=== PATIENT | male | born 1955 | race Caucasian/White ===

== ENCOUNTER 2018-01-05 03:31 | Inpatient (IN) | payer OTHER ==
[~2018-01-05] VITALS: Ht 175.3 cm; Wt 90.7 kg
[~2018-01-05 03:31] MED LIST: ASPIRIN EC81 M1 PO; MULTIVITAMINS1 EAC9 PO; VITAMIN B122500 MC1
--- NOTE | 2018-01-05 09:37 | Admission Core Measures ---
Acute Coronary Syndrome (CM) ACS Core Measures Acute Coronary Syndrome Diagnosis No Congestive Heart Failure (NEW) CHF Core Measures Congestive Heart Failure Diagnosis No Cerebrovascular Accident CVA Core Measures CVA/TIA Diagnosis No Venous Thromboembolism VTE Core Meme (View Protocol) VTE Risk Factors Surgery No Mechanical VTE Prophylaxis d/t N/A MechProphylax Ordered No VTE Pharm Prophylaxis d/t NA PharmProphylax ordered Problem List As ranked by this Provider includes Assessment & Plan 1. Unilateral primary osteoarthritis, left hip HOME MEDS Home Med List Aspirin (Ecotrin*) 81 MG TABLET.DR 1 TAB PO DAILY HEART HEALTH (Reported) Multiple Vitamin (Multivitamins) 1 EACH TABLET 1 TAB PO DAILY SUPPLEMENT ( Reported)
[2018-01-05] MEDS ORDERED: MS CONTIN15 M3 PO (09:41)
[2018-01-05] MEDS ORDERED: DILAUDID2 M1 PO (09:41)
[2018-01-05] MEDS ORDERED: MIRALAX17 G1 PO (09:41)
[2018-01-05] MEDS ORDERED: ASPIRIN EC81 M1 PO (09:41)
[2018-01-05] MEDS ORDERED: COLACE100 M1 PO (09:41)
[2018-01-05] MEDS ORDERED: PRILOSEC OTC20 M1 PO (09:41)
[2018-01-05] MEDS ORDERED: INDOMETHACIN25 M1 PO (09:41)
--- NOTE | 2018-01-05 09:45 | Patient Discharge Instructions ---
Discharge Instructions General Discharge Information You were seen/treated for: Left hip pain related to unilateral primary osteoarthritis You had these procedures: Left total hip replacement Watch for these problems: Increasing pain despite the use of pain medication Increasing redness, warmth or swelling Drainage of any type from incision Inability to bear weight on operative leg Persistent nausea and vomiting Fever greater than 101.5 degrees Do not soak the wound: Yes No bath, but you may shower: Yes Other wound care: Please keep wound clean and dry. No ointments or lotions of any type on or near incision at any time. No exceptions. Your dressing will be changed by your nurse on the second day after your surgery. Daily dry dressing changes are recommended each day thereafter. Do not soak your wound in a bath or pool at any time until otherwise indicated by your surgeon. You may shower, please dry wound immediately after shower with a clean towel. Special Instructions: Aspirin: You are taking this medication to help prevent blood clot formation. Please take with food to protect your stomach lining. Please take as directed. Constipation: Pain medication can cause constipation. Your surgeon has recommended that you take Colace and miralax each day. You may discontinue this medication if you develop loose stool or diarrhea. If you wish to continue this medication, it is available over the counter. If you are unable to move your bowels after several days, if you are unable to pass gas and are developing bloating, nausea, or vomiting as a result, please contact your doctor. Diet Continue normal diet: Yes Recommended Diet: Regular Activity Full Activity/No Limits: No Activity Self Limited: Yes Pounds, do NOT lift more than: 10 Acute Coronary Syndrome Inclusion Criteria At DC or during hospital stay patient has or had the following: ACS DIAGNOSIS No Discharge Core Measures Meds if any: Prescribed or Continued at Discharge Meds if any: NOT Prescribed or Continued at Discharge Congestive Heart Failure Inclusion Criteria At DC or during hospital stay patient has or had the following: CHF DIAGNOSIS No Discharge Core Measures Meds if any: Prescribed or Continued at Discharge Meds if any: NOT Prescribed or Continued at Discharge Cerebrovascular accident Inclusion Criteria At DC or during hospital stay patient has or had the following: CVA/TIA Diagnosis No Discharge Core Measures Meds if any: Prescribed or Continued at Discharge Meds if any: NOT Prescribed or Continued at Discharge Venous thromboembolism Inclusion Criteria VTE Diagnosis No VTE Type NONE VTE Confirmed by (Test) NONE Discharge Core Measures - Per Current guidelines, there needs to be overlap - treatment for the first 5 days of Warfarin therapy. - If discharged on Warfarin prior to 5 days of - overlap therapy, the patient will need to be - assessed for post discharge needs including - *Post discharge parental anticoagulation - *Warfarin and/or parental anticoagulation education - *Follow up date to check INR post discharge At least 5 days overlap therapy as Inpatient No Meds if any: Prescribed or Continued at Discharge Note: Overlap Therapy is Warfarin and Anticoagulant Meds if any: NOT Prescribed or Continued at Discharge
--- NOTE | 2018-01-05 09:46 | Surgical Discharge Summary ---
Visit Information Visit Dates Admission Date: 01/05/18 History of Present Illness Chief Complaint: Left hip pain related to unilateral primary osteoarthritis Medical History Isolation History: Standard Surgical History Pertinent Surgical History: non-contributory Review of Systems: See H&P Hospital Course Course Attending Physician: Loyd Hogue MD Primary Care Physician: Ross Puga MD Hospital Course: Patient was admitted to the hospital for an elective total joint replacement. The procedure was tolerated well and patient was transferred to a general surgical floor. Diet was advanced and tolerated. The patient was evaluated and treated by physical therapy. At the time of hospital discharge, the vital signs were stable, neurovascular status was intact, and pain was controlled with the use of oral pain medications. Allergies: Coded Allergies: No Known Allergies (12/29/17) Disposition Summary Disposition Principal Diagnosis: Left hip unilateral primary osteoarthritis Additional Diagnosis: None Discharge Disposition: home health services Discharge Instructions General Discharge Information Code Status: Full Code Patient's Diet: Regular, advance as tolerated Patient's Activity: WBAT Follow-Up Instructions/Appts: Follow up with Dr. Hogue in 6 weeks from date of surgery. Please call office to arrange &/or confirm this appointment. Medications at Discharge Discharge Medications: Stop taking the following medications: Aspirin (Ecotrin*) 81 MG TABLET. ORAL DAILY Continue taking these medications: Multiple Vitamin (Multivitamins) 1 EACH TABLET 1 Tablet ORAL DAILY Cyanocobalamin (Vitamin B-12) (Vitamin B12) 2,500 MCG TABLET Start taking the following new medications: Aspirin (Ecotrin*) 81 MG TABLET. 1 Tablet ORAL TWICE DAILY Qty = 60 No Refills Indomethacin (Indomethacin) 25 MG CAPSULE 1 Capsule ORAL THREE TIMES DAILY Qty = 30 No Refills Instructions: with food Docusate Sodium (Colace) 100 MG CAPSULE 1 Capsule ORAL TWICE DAILY Qty = 14 No Refills Instructions: DISCONTINUE USE IF YOU DEVELOP LOOSE STOOL OR DIARRHEA Polyethylene Glycol 3350 (Miralax) 17 GRAM POWD.PACK 1 Packet ORAL DAILY Qty = 7 No Refills Instructions: dissolve in water, DISCONTINUE USE IF YOU DEVELOP LOOSE STOOL OR DIARRHEA Omeprazole Magnesium (Prilosec Otc) 20 MG TABLET. 2 Tablet ORAL DAILY Qty = 60 No Refills Hydromorphone HCl (Dilaudid) 2 MG TABLET 1-2 Tablet ORAL EVERY 4-6 HOURS NEEDED as needed for PAIN Qty = 36 No Refills Morphine Sulfate (Ms Contin) 15 MG TABLET.ER 1 Tablet ORAL TWICE DAILY Qty = 6 No Refills
--- NOTE | 2018-01-05 09:56 | RADIOLOGY REPORT ---
EXAMINATION: XR HIP, LEFT CLINICAL INFORMATION: Status post left total hip replacement COMPARISON: None TECHNIQUE: Two views of the left hip. FINDINGS: The femoral head prosthesis is well centered within the acetabular cup. The acetabular cup is suboptimally visualized on the crosstable lateral view. The femoral stem is properly located in the medullary cavity of the proximal femoral diaphysis. No acute periprosthetic fracture. Mild postoperative soft tissue gas around the hip. Multilevel discovertebral degenerative change of partially visualized lower lumbar spine. IMPRESSION: Satisfactory position and alignment of components of left total hip arthroplasty. No acute periprosthetic fracture.
[2018-01-05 12:15] VITALS: BP 130/72
--- NOTE | 2018-01-05 13:39 | PN- Student ---
Blanca wright 01/05/18 2446: Subjective Subjective: Pt is feeling well post-operatively. He is beginning to regain sensation in his lower extremities and has mild pain. He tolerated a regular diet. Pt has not voided yet. Pt ambulated with PT. Denies any CP, SOB, numbness, tingling, nausea , vomiting, headache or dizziness. Objective Objective: Vitals: See EMR General: Middle aged man, sitting up in bed, NAD. Cardio: Regular rate and rhythm. S1 and S2 heard. No murmurs, rubs or gallops. Pulm: Symmetric rise and fall of the chest. Breath sounds heard in all lung chambers with no wheezes, rhonchi or rales. Abdomen: Soft, non-tender, non-distended. Normoactive bowel sounds. Extremities: ALPs in place. Dressing clean dry and intact. Ice pack in place over dressing. Calves are soft and non-tender bilaterally. Gross sensation intact and equal bilaterally. Plantar and dorsiflexion 5/5 bilaterally. Dorsalis pedis and posterior tibialis pulses are palpable bilaterally. Assessment/Plan Assessment: Pt is a 62 year old male POD #0 s/p left total hip replacement, with no past medical history. Pt is due to void post-operatively and his pain is being well controlled. Plan: Continue to monitor and control pain. Pt cleared by PT. Monitor for post-operative void. Complete 2 remaining doses of Ancef. Indomethacin for prevention of heterotrophic ossification. ALPs in place for DVT ppx. Pt to continue on Aspirin 81 mg bid x4 weeks for DVT ppx upon discharge. Continue with regular diet as tolerated. Continue with d/c planning. Will discuss with attending and surgical PAs. Isis Gonzales 01/05/18 4456: Assessment/Plan Assessment: Agree with student assessment/plan: Dressing to left hip clean dry and intact, thigh compartment soft. Distal motor /sensory intact. Bialteral calves soft and non-tender. Patient has cleared PT and is interested in discharge in dc to home today, discharge order to be placed pending post op void. Antibiotic prophylaxis for 24 hours post op is required while patient is in hospital only, okay to dc to home prior to administration of additional doses.
[2018-01-05 14:10] VITALS: BP 152/80
--- NOTE | 2018-01-05 15:42 | Operative Report ---
Operative/Inv Procedure Report Surgery Date: 01/05/18 Name of Procedure: Left total hip replacement Pre-Operative Diagnosis: Primary left hip DJD Post-Operative Diagnosis: Same Estimated Blood Loss: 300 Surgeon/Guest Service Aide: Mykel TORIBIO,Loyd Coburn Anesthesia: block Operative/Procedure Note Note: Description of Procedure: The patient was taken to the operating room and positively identified. After induction of spinal anesthesia and administration of appropriate pre-operative antibiotics, the patient was positioned supine on the operating room table and all bony prominences were well padded. After performing a surgical timeout, the left lower extremity was prepped and draped in the usual sterile fashion. A direct anterior approach was made to the left hip. The incision was carried sharply through superficial soft tissues to the level of the fascia. Meticulous hemostasis was maintained with Bovie electocautery. The fascia over the tensor fascia carlos muscle was opened sharply and the interval between the TFL and the sartorius was entered bluntly taking care to stay lateral to the lateral femoral cutaneous nerve. Retractors were placed around the femoral neck and the pericapsular fat was identified. The ascending branches of the lateral femoral circumflex vessels were identified and carefully coagulated. The pericapsular fat and anterior capsule were then resected. A napkin ring osteotomy was performed and the femoral head was removed without difficulty. Attention was then turned to the acetabulum. After appropriate placement of retractors, the acetabulum was exposed. Soft tissue was cleaned from the acetabular margin and notch. Overhanging osteophytes were removed and the teardrop was exposed. The acetabulum was then sequentially reamed to accept a 58 mm [place] Tritanium hemispherical solid shell. This was impacted into place in the appropriate position and fitted with a 36 mm Trident X3 zero degree polyethylene insert. Attention was then turned to the femur. After performing the appropriate ligament releases, the proximal femur was exposed. It was then sequentially broached to accept a size 6 Cyndee Accolade 2 stem. This was trialed for leg length and stability. The trial component was removed and the final component was impacted into place. The trunnion was carefully cleaned and fit with a 36 mm, -2.5 Biolox delta ceramic femoral head. The hip was reduced and put through a full range of motion and found to be stable. The articular space was then irrigated with sterile saline. The periarticular soft tissues were infilitrated with Marcaine. The fascial layer was closed with interrupted #1 vicryl suture and the skin was re-approximated with interrupted 2 -0 vicryl. The skin was closed with a running 3-0 V-Lock suture. Steri-strips and a sterile dressing were applied. The patient was awakened and taken to the recovery room in satisfactory condition.
== END 2018-01-05 16:02 | disposition home health service (06) | DRG 470 ==
LOC: SDA 03:31 → ENRESERV 10:31 → ENTRNSPT 11:06 → EDTRNSPTSTS 12:00 → EDTRNSPT 12:00 → 2NA 12:08 → CMPTRNSPT 12:20 → ENPENDDIS 14:22 → 2NA 16:02
PROC: 0SRB04A Replacement of Left Hip Joint with Ceramic on Polyethylene Synthetic Substitute, Uncemented, Open Approach (ICD-10-PCS; principal; 2018-01-05)
DX: M16.12 Unilateral primary osteoarthritis, left hip (principal); K21.9 Gastro-esophageal reflux disease without esophagitis
CPT/HCPCS: 2NAP; 73502-LT; 97116-GO; 97161-GP; J0131; J0690; J0735; J2550; J7042